=== PATIENT | male | born 1950 | race Caucasian/White ===

== ENCOUNTER 2024-08-18 11:30 | Outpatient (REF) | payer MEDICARE, SELFPAY ==
--- OUTSIDE RECORDS SUMMARY | 2024-08-18 14:07 | XMS_ITS | Clinical Summary ---
Author Organization [address] [place] [address] Address [address] [place] [address] Phone Care Team Providers Care Bird Trapper Name Role Phone Uday Mantilla MD Primary Care Provider [phone] Allergies No known active allergies Medications ascorbic acid (VITAMIN C) 500 mg chewable tablet Take 1 Tablet by mouth daily. Take with iron 11/22/2022 Active ferrous sulfate 325 mg (65 mg elemental iron) tablet Take 1 Tablet by mouth daily. Take with vitamin C 11/22/2022 Active aspirin 81 mg chewable tablet Take 1 Tablet by mouth daily. 09/26/2022 Active atorvastatin (LIPITOR) 80 mg tablet Take 1 Tablet by mouth. 08/15/2022 Active levothyroxine (SYNTHROID, LEVOTHROID) 200 mcg tablet Take 1 Tablet by mouth daily for 360 days. Take 1 tablet on days 1 through 6 and 2 tablets on day 7 11/21/2022 Active metoprolol succinate (TOPROL-XL) 25 mg 24 hr tablet Take 1 Tablet by mouth daily. 01/17/2024 Active zolpidem (AMBIEN) 10 mg tablet at bedtime. 01/06/2023 Active Active Problems Problem Noted Date Diagnosed Date Abdominal pain 04/03/2024 Bladder distension 04/03/2024 Change in bowel habits 04/03/2024 Enlarged prostate 04/03/2024 Chest pain 11/21/2022 Dizziness 11/21/2022 Overview (04/03/2024): Last Assessment & Plan: Patient's dose of beta-judy will be decreased to 25 mg a day to see if that helps and report if it has not at that point if he has not then he needs a CAT scan of the head CAD (coronary artery disease) 08/29/2022 Overview (04/03/2024): Last Assessment & Plan: History of the scar coronary disease status post RCA stenting reduced left ventricular ejection fraction of 35 to 40%.. Question of possible thrombus which is resolved. He is off Eliquis remains on aspirin and Plavix and is now just on aspirin therapy ST elevation myocardial infa rction involving left anterior descending (LAD) coronary artery ([facility] V24, [facility] V28) 08/29/2022 Overview (04/03/2024): Last Assessment & Plan: Patient is status post acute coronary syndrome with evidence of an infarct with possible apical aneurysm formation. Initially thought to have a thrombus present but not verified when the second echocardiogram was done using Definity. Patient was left with a significantly low ejection fraction he has had no chest pain pressure shortness of breath no symptoms whatsoever but has not had a repeat echocardiogram done to assess EF which was low. Patient is on appropriate medical therapy. Anticoagulation is been stopped. Patient's been management for hypertension and hyperlipidemia H. pylori infection 07/12/2020 Acquired hypothyroidism 02/26/2017 Mixed hyperlipidemia 11/20/2010 Overview (04/03/2024): 05/20 recommended statin. 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 Encounters Date Type Department Care Team Description 06/10/2024 8:30 AM EST Office Visit Adult [facility] [address] [place] [id number] Imelda Victoria NP Forgetfulness (Primary Dx); ST elevation myocardial infarction involving left anterior descending (LAD) coronary artery ([facility] V24, [facility] V28); Mixed hyperlipidemia; Acquired hypothyroidism from Last 3 Months Immunizations Name Administration Dates Next Due Influenza Quadravalent, MDCK , 0.5ml, preservative free (Flucelvax) 6mo and older 03/07/2018 Influenza trivalent, 0.5mL (Fluad) 65yo and olde r 05/29/2021,01/21/2020 Influenza, Unspecified 02/11/2022 Tdap Tetanus diptheria acell ular pertussis (Boostrix; Adacel) 7yo and older 02/05/2007 Surgical History Surgery Date Site/Laterality Comments OTHER SURGICAL HISTORY PROCEDURE: SD THYROIDECTOMY TOTAL/SUBTOTAL RAD NECK DISSECT VASECTOMY PROCEDURE: SD VASECTOMY UNI/BI SPX W/POSTOP SEMEN EXAMS COLONOSCOPY 01/21/2002 PROCEDURE: HISTORICAL COLONOSCOPY; COMMENT: no polyps. COLONOSCOPY 06/04/2018 PROCEDURE: HISTORICAL COLONOSCOPY; COMMENT: no polyps HERNIA REPAIR 01/2020 Left PROCEDURE: HISTORICAL HERNIA REPAIR/ING HERNIA REPAIR 01/2020 PROCEDURE: HISTORICAL HERNIA REPAIR/UMB OTHER SURGICAL HISTORY 07/2022 N/A PROCEDURE: SURGICAL STENT; COMMENT: 2 coronary stents placed [facility] Medical History Medical History Date Comments Malignant neoplasm of thyroi d gland ([facility] V24, [facility] V28) DX:Malignant neoplasm of th yroid gland (HCC); COMMENT: treated with thyroidectomy at age 15, and 1992 Postsurgical hypothyroidism DX:P ostsurgical hypothyroidism Hyperlipidemia DX:Hyperlipidemi a Bladder distension DX:Bladder di stension Enlarged prostate DX:Enlarged pr ostate Abdominal pain DX:Abdominal sobia n Change in bowel habits DX:Change in bowel habits CAD (coronary artery disease) DX :CAD (coronary artery disease) History of [place] (myocardial infarction) DX:History of [place] (myocardial infarction) Family History Medical History Relation Name Comments Prostate cancer Brother Prostate cancer Father Other: falls Mother alive age 90 Relation Name Status Comments Brother Alive Father Mother Son Alive Social History Tobacco Use Types Packs/Day Years Used Date Smoking Tobacco: Never Smokeless Tobacco: Never Tobacco Cessation:Counseling Given: No Alcohol Use Standard Drinks/Week Comments Yes 0 (1 standard drink = 0.6 oz pur e alcohol) Sex and Gender Information Value Date Recorded Sex Assigned at Not on file Legal Sex Male 8:02 PM EST Gender Identity Not on file Sexual Orientation Not on file Obstetrics History Last Filed Vital Signs Vital Sign Reading Time Taken Comments Blood Pressure 125/79 06/10/2024 8:29 AM EST Pulse 85 06/10/2024 8:29 AM EST Temperature 36.4 ??C (97.5 ??F) 06/10/2024 8:29 AM ES T Respiratory Rate - - Oxygen Saturation - - Inhaled Oxygen Concentration - - Weight 93.9 kg (207 lb) 06/10/2024 8:29 AM EST Height 188 cm (6' 2 ) 06/10/2024 8:29 AM EST Body Mass Index 26.58 06/10/2024 8:29 AM EST Plan of Treatment Health Maintenance Due Date Last Done Comments Pneumococcal Vaccine: 50+ Years (1 of 2 - PCV) 1969 Zoster Vaccines (1 of 2) 1969 DTaP,Tdap,and Td Vaccines (2 - Td or Tdap) 02/05/2017 02/05/2007 Colorectal Cancer Screening: Stool Based Tests (FOBT/FIT) 04/07/2022 Depression Screening 04/07/2022 Falls Risk Assessment 04/07/2022 Social Influencers of Health Screening 04/07/2022 Medicare Annual Wellness Visit 02/01/2024 01/31/2023 RSV Immunization Adult Patients (1 - 1-dose 75+ series) 2024 COVID-19 Vaccine (5 - Pfizer risk 2023- season) 2024 02/20/2024, 03/16/2021, 07/22/2020, Additional history exists Hypertension/CHF/CAD Annual BMP Blood Test 06/10/2025 06/10/2024, 02/04/2023 Cholesterol Screening (Lipid Panel) 06/10/2029 06/10/2024, 05/29/2021 Hepatitis C Screening Completed 01/09/2016 Colorectal Cancer Screening: Colonoscopy Discontinued 03/20/2022 Influenza Vaccine Completed 03/23/2024, , 02/10/2022, Additional history exists HIB Vaccines Aged Out No longer eligi ble based on patient's age to complete this topic HPV Vaccines Aged Out No longer eligi ble based on patient's age to complete this topic Hepatitis A Vaccines Aged Out No long er eligible based on patient's age to complete this topic Hepatitis B Vaccines Aged Out No long er eligible based on patient's age to complete this topic IPV Vaccines Aged Out No longer eligi ble based on patient's age to complete this topic MMR Vaccines Aged Out No longer eligi ble based on patient's age to complete this topic Meningococcal ACWY Vaccine Aged Out N o longer eligible based on patient's age to complete this topic Meningococcal B Vaccine Aged Out No l onger eligible based on patient's age to complete this topic RSV Immunization Patients Under 20 months Aged Out No longer eligible based on patient's age to complete this topic Varicella Vaccines Aged Out No longer eligible based on patient's age to complete this topic Procedures Procedure Name Priority Date/Time Associated Diagnosis Comments TRIIODOTHYRONINE FREE Routine 06/10/2024 9:31 AM EST Acquired hypothyroidism FREE THYROXINE WITH REFLEX TO FREE TRIIODOTHYRONINE Routine 06/10/2024 9:31 AM EST Acquired hypothyroidism CBC WITH AUTO DIFFERENTIAL Routine 06/10/2024 9:[address] elevation myocardial infarction involving left anterior descending (LAD) coronary artery (CMS/HCC V24, CMS/HCC V28) THYROID STIMULATING HORMONE WITH REFLEX TO FREE T4 AND FREE T3 Routine 06/10/2024 9:31 AM EST Acquired hypothyroidism LIPID PANEL WITH REFLEX TO DIRECT LDL Routine 06/10/2024 9:[address] elevation myocardial infarction involving left anterior descending (LAD) coronary artery (CMS/HCC V24, CMS/HCC V28) Mixed hyperlipidemia COMPREHENSIVE METABOLIC PANEL Routine 06/10/2024 9:[address] elevation myocardial infarction involving left anterior descending (LAD) coronary artery (CMS/HCC V24, CMS/HCC V28) CBC AND DIFFERENTIAL Routine 06/10/2024 9:[address] elevation myocardial infarction involving left anterior descending (LAD) coronary artery (CMS/HCC V24, CMS/HCC V28) VITAMIN B12 AND FOLATE Routine 9:31 AM EST Forgetfulness COLONOSCOPY Routine 03/20/2022 HEPATITIS C SCREENING Routine 01/09/2016 from Last 3 Months or Most Recently Relevant to Health Maintenance Results * (ABNORMAL) Thyroid stimulating hormone with reflex to free t4 and free t3 (06/10/2024 9:31 AM EST) TSH 90.81(H) 0.40 - 4.00 mcIU/mL LAB CHEMISTRY METHOD 06/10/2024 1:25 PM EST [facility] Comment:Results verified by repeat testing Blood Venous blood specimen / Unknown Venipuncture / Unknown 06/10/2024 9:31 AM EST 06/10/2024 9:31 AM EST Imelda Victoria NET DEVELOPER [employer]CHIT[employer] LAB BLOOD ORDERABLES Final Res ult Performing Organization Address City/[facility]/ZIP Co de Phone Number [facility] [address] [place] [address], [place] [phone] * (ABNORMAL) Free thyroxine with reflex to free triiodothyronine (06/10/2024 9:31 AM EST) Free T4 0.43(L) 0.70 - 1.80 ng/dL LAB CHEMISTRY METHOD 06/10/2024 1:50 PM EST [facility] Blood Venous blood specimen / Unknown Venipuncture / Unknown 06/10/2024 9:31 AM EST 06/10/2024 9:31 AM EST Iemlda Victoria [employer] DEVELOPER ARCHIT[employer] LAB BLOOD ORDERABLES Final Res ult [facility] [address] [place] [address], [place] [phone] * Vitamin B12 and folate (06/10/2024 9:31 AM EST) [facility] Vitamin B-12 306 250 - 900 pcg/mL LAB CHEMISTRY METHOD 06/10/2024 12:59 PM [facility] Folate 11.6 2.8 - 17.0 ng/ml LAB CHEMISTRY METHOD 06/10/2024 12:59 PM [facility] Blood Venous blood specimen / Unknown Venipuncture / Unknown 06/10/2024 9:31 AM EST 06/10/2024 9:31 AM EST us Imelda Victoria NP LAB BLOOD ORDERABLES Final Res ult [facility] [address] [place] [address], [place] [phone] * (ABNORMAL) Lipid panel with reflex to direct LDL (06/10/2024 9:31 AM EST) [facility] Cholesterol 255(H) 0 - 200 mg/dL LAB CHEMISTRY METHOD 06/10/2024 12:59 PM [facility] Triglycerides 167(H) 0 - 150 mg/dL LAB CHEMISTRY METHOD 06/10/2024 12:59 PM [facility] HDL 51 >=40 mg/dL LAB CHEMISTRY METHOD 06/10/2024 12:59 PM [facility] LDL Calculated 171(H) 0 - 100 mg/dL LAB CHEMISTRY METHOD 06/10/2024 12:59 PM [facility] VLDL Cholesterol Braulio 33.4 mg/dL LAB CHEMISTRY METHOD 06/10/2024 12:59 PM [facility] Non HDL Chol. (LDL+VLDL) 204(H) <145 mg/dL LAB CHEMISTRY METHOD 06/10/2024 12:59 PM [facility] Chol/HDL Ratio 5.0(H) 0.0 - 4.4 LAB CHEMISTRY METHOD 06/10/2024 12:59 PM [facility] Blood Venous blood specimen / Unknown Venipuncture / Unknown 06/10/2024 9:31 AM EST 06/10/2024 9:31 AM EST us Imelda Victoria NP LAB BLOOD ORDERABLES Final Res ult [facility] [address] [place] [address], * (ABNORMAL) CBC auto differential (06/10/2024 9:31 AM EST) WBC 5.6 4.8 - 10.8 K/mcL LAB HEMETOLOGY METHOD 06/10/2024 12:12 PM [facility] RBC 4.90 4.50 - 5.50 M/mcL LAB HEMETOLOGY METHOD 06/10/2024 12:12 PM [facility] Hemoglobin 14.3 13.5 - 17.5 g/dL LAB HEMETOLOGY METHOD 06/10/2024 12:12 PM [facility] Hematocrit 43.8 42.0 - 54.0 % LAB HEMETOLOGY METHOD 06/10/2024 12:12 PM [facility] MCV 90.1 79.0 - 98.0 FL LAB HEMETOLOGY METHOD 06/10/2024 12:12 PM [facility] MCH 29.4 27.0 - 32.0 pcg LAB HEMETOLOGY METHOD 06/10/2024 12:12 PM [facility] MCHC 32.6 32.0 - 37.0 g/dL LAB HEMETOLOGY METHOD 06/10/2024 12:12 PM [facility] RDW 13.3 11.0 - 15.0 % LAB HEMETOLOGY METHOD 06/10/2024 12:12 PM [facility] Platelets 286 130 - 400 K/mcL LAB HEMETOLOGY METHOD 06/10/2024 12:12 PM [facility] MPV 9.2 7.0 - 11.0 FL LAB HEMETOLOGY METHOD 06/10/2024 12:12 PM [facility] NRBC 0.0 <1.0 % LAB HEMETOLOGY METHOD 06/10/2024 12:12 PM [facility] NRBC Absolute 0.00 <0.10 K/mcL LAB HEMETOLOGY METHOD 06/10/2024 12:12 PM [facility] Neutrophils Relative 61.5 % LAB HEMETOLOGY METHOD 06/10/2024 12:12 PM [facility] Lymphocytes Relative 23.6 % LAB HEMETOLOGY METHOD 06/10/2024 12:12 PM [facility] Monocytes Relative 9.8 % LAB HEMETOLOGY METHOD 06/10/2024 12:12 PM [facility] Eosinophils Relative 3.7 % LAB HEMETOLOGY METHOD 06/10/2024 12:12 PM [facility] Basophils Relative 0.7 % LAB HEMETOLOGY METHOD 06/10/2024 12:12 PM [facility] Immature Granulocytes Relative 0.7 % LAB HEMETOLOGY METHOD 06/10/2024 12:12 PM [facility] Neutrophils Absolute 3.46 1.50 - 7.00 K/mcL LAB HEMETOLOGY METHOD 06/10/2024 12:12 PM [facility] Lymphocytes Absolute 1.33 1.00 - 5.00 K/mcL LAB HEMETOLOGY METHOD 06/10/2024 12:12 PM [facility] Monocytes Absolute 0.55 0.20 - 1.00 K/mcL LAB HEMETOLOGY METHOD 06/10/2024 12:12 PM [facility] Eosinophils Absolute 0.21 0.00 - 0.50 K/mcL LAB HEMETOLOGY METHOD 06/10/2024 12:12 PM EST [facility] Basophils Absolute 0.04 0.00 - 0.20 K/mcL LAB HEMETOLOGY METHOD 06/10/2024 12:12 PM EST [facility] Immature Granulocytes Absolute 0.04(H) 0.00 - 0.03 K/mcL LAB HEMETOLOGY METHOD 06/10/2024 12:12 PM [facility] Blood Venous blood specimen / Unknown Venipuncture / Unknown 06/10/2024 9:31 AM EST 06/10/2024 9:31 AM EST Imelda Victoria NP LAB BLOOD ORDERABLES Final Res ult Performing Organization Address City/[facility]/ZIP Co de Phone Number [facility] [address] [place] [address], [place] [phone] * (ABNORMAL) Triiodothyronine free (06/10/2024 9:31 AM EST) T3, Free 212(L) 230 - 420 pcg/dL LAB CHEMISTRY METHOD 06/10/2024 2:15 PM [facility] Blood Venous blood specimen / Unknown Venipuncture / Unknown 06/10/2024 9:31 AM EST 06/10/2024 9:31 AM EST Imelda Victoria NP LAB BLOOD ORDERABLES Final Res ult [facility] [address] [place] [address], [place] [phone] * Comprehensive metabolic panel (06/10/2024 9:31 AM EST) Sodium 134 133 - 145 mmol/L LAB CHEMISTRY METHOD 06/10/2024 12:59 PM [facility] Potassium 3.8 3.5 - 5.5 mmol/L LAB CHEMISTRY METHOD 06/10/2024 12:59 PM EST [facility] Chloride 100 96 - 110 mmol/L LAB CHEMISTRY METHOD 06/10/2024 12:59 PM [facility] CO2 30 21 - 32 mmol/L LAB CHEMISTRY METHOD 06/10/2024 12:59 PM [facility] Anion Gap 4 3 - 11 LAB CHEMISTRY METHOD 06/10/2024 12:59 PM [facility] Glucose 76 70 - 100 mg/dL LAB CHEMISTRY METHOD 06/10/2024 12:59 PM [facility] BUN 10 5 - 25 mg/dL LAB CHEMISTRY METHOD 06/10/2024 12:59 PM [facility] Creatinine 1.18 0.70 - 1.30 mg/dL LAB CHEMISTRY METHOD 06/10/2024 12:59 PM [facility] eGFR 64 >=60 mL/min/1. 73m2 LAB CHEMISTRY METHOD 06/10/2024 12:59 PM [facility] Comment:Calculation based on the??Chronic Kidney Disease Epidemiology Collaboration (CKD-EPI) equation refit??without adjustment for race. BUN/Creatinine Ratio 8.5 LAB CHEMISTRY METHOD 06/10/2024 12:59 PM [facility] Calcium 9.4 8.5 - 10.5 mg/dL LAB CHEMISTRY METHOD 06/10/2024 12:59 PM [facility] AST (SGOT) 35 10 - 42 unit/L LAB CHEMISTRY METHOD 06/10/2024 12:59 PM [facility] ALT (SGPT) 39 10 - 60 unit/L LAB CHEMISTRY METHOD 06/10/2024 12:59 PM [facility] Alkaline Phosphatase 72 42 - 121 unit/L LAB CHEMISTRY METHOD 06/10/2024 12:59 PM [facility] Total Protein 7.4 6.0 - 8.0 g/dL LAB CHEMISTRY METHOD 06/10/2024 12:59 PM [facility] Albumin 4.2 3.2 - 5.0 g/dL LAB CHEMISTRY METHOD 06/10/2024 12:59 PM EST [facility] Total Bilirubin 0.5 0.0 - 1.4 mg/dL LAB CHEMISTRY METHOD 06/10/2024 12:59 PM EST [facility] Blood Venous blood specimen / Unknown Venipuncture / Unknown 06/10/2024 9:31 AM EST 06/10/2024 9:31 AM EST Imelda Victoria NET DEVELOPER ARCH[employer] LAB BLOOD ORDERABLES Final Res ult [facility] [address] [place] [address], * Colonoscopy (03/20/2022) Colonoscopy No Interpretation , Abstracted Anatomical Region Laterality Modality Other Historical Provider HEALTH MAINTENANCE Final Result * Hepatitis C Screening (01/09/2016) Hepatitis C Screening Abstracted Historical Provider HEALTH MAINTENANCE Final Result from Last 3 Months or Most Recently Relevant to Health [place] [id number] Care Teams Bird Trapper Relationship Specialty Start Date End Date Uday Mantilla MD [address] [place] [id number] PCP - General Internal Medicine 12/30/19
[2024-08-21 21:14] LABS: Thyrotropin Receptor Antibody <1.00 IU/L (<=2.00)
== END 2024-08-18 11:31 | disposition home or self-care (01) ==
LOC: HO.LAB 11:30
PROVIDERS: Visit Provider Psychiatry & Neurology Neurology
DX: G30.9 Alzheimer's disease, unspecified (principal)
CPT/HCPCS: 36415; 83520

== ENCOUNTER 2024-08-23 09:08 | Outpatient (REF) | payer MEDICARE, SELFPAY | END 2024-08-23 09:09 | disposition home or self-care (01) | LOC: HO.MRI 09:08 | PROVIDERS: Visit Provider Psychiatry & Neurology Neurology | DX: G30.9 Alzheimer's disease, unspecified (principal) | CPT/HCPCS: 70551 ==

== ENCOUNTER → 2024-08-23 09:20 | Outpatient (BNV) | payer MEDICARE, SELFPAY | PROVIDERS: Visit Provider Radiology Diagnostic Radiology | DX: G93.89 Other specified disorders of brain (principal); R90.82 White matter disease, unspecified | CPT/HCPCS: 70551 ==

== ENCOUNTER 2024-09-01 12:07 | Outpatient (REF) | payer MEDICARE, SELFPAY ==
--- OUTSIDE RECORDS SUMMARY | 2024-09-01 13:36 | XMS_ITS | Clinical Summary ---
Author Organization [address] [place] [address] Address [address] [place] [address] Phone Care Team Providers Care Early Intervention Specialist Name Role Phone Uday Mantilla MD Primary Care Provider [phone] Allergies No known active allergies Medications ascorbic [...] involving left anterior descending (LAD) coronary artery ([facility] V24, [facility] V28) 08/29/2022 Overview (04/03/2024): Last Assessment & [...] consider Malignant neoplasm of thyroi d gland ([facility] V24, [facility] V28) 11/20/2005 Overview (04/03/2024): Right lobe removed at age 15, 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 Encounters Date Type Department Care Team Description 06/10/2024 8:30 AM EST Office Visit Adult [facility] [address] [place] [phone] Imelda Victoria NP Forgetfulness (Primary Dx); ST elevation myocardial infarction involving left anterior descending (LAD) coronary artery ([facility] V24, [facility] V28); Mixed hyperlipidemia; Acquired hypothyroidism from Last 3 Months Immunizations Name Administration Dates Next Due Influenza Quadravalent, MDCK , 0.5ml, preservative free (Flucelvax) 6mo and older 03/07/2018 Influenza trivalent, 0.5mL (Fluad) 65yo and olde r 05/29/2021,01/21/2020 Influenza, Unspecified 02/11/2022 Tdap Tetanus diptheria acell ular pertussis (Boostrix; Adacel) 7yo and older 02/05/2007 Surgical History Surgery Date Site/Laterality Comments OTHER SURGICAL HISTORY PROCEDURE: [place] THYROIDECTOM[place] TOTAL/SUBTOTAL RAD NECK DISSECT VASECTOMY PROCEDURE: [place] VASECTOMY UNI/BI SPX W/POSTOP SEMEN EXAMS COLONOSCOPY 01/21/2002 PROCEDURE: HISTORICAL COLONOSCOPY; COMMENT: no polyps. COLONOSCOPY 06/04/2018 PROCEDURE: HISTORICAL COLONOSCOPY; COMMENT: no polyps HERNIA REPAIR 01/2020 Left PROCEDURE: HISTORICAL HERNIA REPAIR/ING HERNIA REPAIR 01/2020 PROCEDURE: HISTORICAL HERNIA REPAIR/UMB OTHER SURGICAL HISTORY 07/2022 N/A PROCEDURE: SURGICAL STENT; COMMENT: 2 coronary stents placed [facility] Medical History Medical History Date Comments Malignant neoplasm of thyroi d gland ([facility] V24, [facility] V28) DX:Malignant neoplasm of th yroid gland (HCC); COMMENT: treated with thyroidectomy at age 15, and 1992 Postsurgical hypothyroidism DX:P ostsurgical hypothyroidism Hyperlipidemia DX:Hyperlipidemi a Bladder distension DX:Bladder di stension Enlarged prostate DX:Enlarged pr ostate Abdominal pain DX:Abdominal sobia n Change in bowel habits DX:Change in bowel habits CAD (coronary artery disease) DX :CAD (coronary artery disease) History of [place] (myocardial infarction) DX:History of [place] (myocardial infarction) Family History Medical History Relation [...] EST 06/10/2024 9:31 AM EST Imelda Victoria [employer] LAB BLOOD ORDERABLES Final Res ult Performing Organization Address City/[facility]/ZIP Co de Phone Number [facility] [address] [place] [address], [place] [phone] * (ABNORMAL) Free thyroxine with reflex to free triiodothyronine (06/10/2024 9:31 AM EST) Free T4 0.43(L) 0.70 - 1.80 ng/dL LAB CHEMISTRY METHOD 06/10/2024 1:50 PM EST [facility] Blood Venous blood specimen / Unknown Venipuncture / Unknown 06/10/2024 9:31 AM EST 06/10/2024 9:31 AM EST Imelda Victoria [employer] LAB BLOOD ORDERABLES Final Res ult [facility] [address] [place] [address], [place] [phone] * Vitamin B12 and folate (06/10/2024 9:31 AM EST) [facility] Vitamin B-12 306 250 - 900 pcg/mL LAB CHEMISTRY METHOD 06/10/2024 12:59 PM [facility] Folate 11.6 2.8 - 17.0 ng/ml LAB CHEMISTRY METHOD 06/10/2024 12:59 PM [facility] Blood Venous blood specimen / Unknown Venipuncture / Unknown 06/10/2024 9:31 AM EST 06/10/2024 9:31 AM EST us Imelda Victoria NP LAB BLOOD ORDERABLES Final Res ult [facility] [address] [place] [address], [place] [phone] * (ABNORMAL) Lipid panel with reflex to direct LDL (06/10/2024 9:31 AM EST) [facility] Cholesterol 255(H) 0 - 200 mg/dL LAB CHEMISTRY METHOD 06/10/2024 12:59 PM [facility] Triglycerides 167(H) 0 - 150 mg/dL LAB CHEMISTRY METHOD 06/10/2024 12:59 PM [facility] HDL 51 >=40 mg/dL LAB CHEMISTRY METHOD 06/10/2024 12:59 PM [facility] LDL Calculated 171(H) 0 - 100 mg/dL LAB CHEMISTRY METHOD 06/10/2024 12:59 PM [facility] VLDL Cholesterol Braulio 33.4 mg/dL LAB CHEMISTRY METHOD 06/10/2024 12:59 PM [facility] Non HDL Chol. (LDL+VLDL) 204(H) <145 mg/dL LAB CHEMISTRY METHOD 06/10/2024 12:59 PM [facility] Chol/HDL Ratio 5.0(H) 0.0 - 4.4 LAB CHEMISTRY METHOD 06/10/2024 12:59 PM [facility] Blood Venous blood specimen / Unknown Venipuncture / Unknown 06/10/2024 9:31 AM EST 06/10/2024 9:31 AM EST us Imelda Victoria NP LAB BLOOD ORDERABLES Final Res ult [facility] [address] [place] [address], * (ABNORMAL) CBC auto differential (06/10/2024 9:31 AM EST) WBC 5.6 4.8 - 10.8 K/mcL LAB HEMETOLOGY METHOD 06/10/2024 12:12 PM [facility] RBC 4.90 4.50 - 5.50 M/mcL LAB HEMETOLOGY METHOD 06/10/2024 12:12 PM [facility] Hemoglobin 14.3 13.5 - 17.5 g/dL LAB HEMETOLOGY METHOD 06/10/2024 12:12 PM [facility] Hematocrit 43.8 42.0 - 54.0 % LAB HEMETOLOGY METHOD 06/10/2024 12:12 PM [facility] MCV 90.1 79.0 - 98.0 FL LAB HEMETOLOGY METHOD 06/10/2024 12:12 PM [facility] MCH 29.4 27.0 - 32.0 pcg LAB HEMETOLOGY METHOD 06/10/2024 12:12 PM [facility] MCHC 32.6 32.0 - 37.0 g/dL LAB HEMETOLOGY METHOD 06/10/2024 12:12 PM [facility] RDW 13.3 11.0 - 15.0 % LAB HEMETOLOGY METHOD 06/10/2024 12:12 PM [facility] Platelets 286 130 - 400 K/mcL LAB HEMETOLOGY METHOD 06/10/2024 12:12 PM [facility] MPV 9.2 7.0 - 11.0 FL LAB HEMETOLOGY METHOD 06/10/2024 12:12 PM [facility] NRBC 0.0 <1.0 % LAB HEMETOLOGY METHOD 06/10/2024 12:12 PM [facility] NRBC Absolute 0.00 <0.10 K/mcL LAB HEMETOLOGY METHOD 06/10/2024 12:12 PM [facility] Neutrophils Relative 61.5 % LAB HEMETOLOGY METHOD 06/10/2024 12:12 PM [facility] Lymphocytes Relative 23.6 % LAB HEMETOLOGY METHOD 06/10/2024 12:12 PM [facility] Monocytes Relative 9.8 % LAB HEMETOLOGY METHOD 06/10/2024 12:12 PM [facility] Eosinophils Relative 3.7 % LAB HEMETOLOGY METHOD 06/10/2024 12:12 PM [facility] Basophils Relative 0.7 % LAB HEMETOLOGY METHOD 06/10/2024 12:12 PM [facility] Immature Granulocytes Relative 0.7 % LAB HEMETOLOGY METHOD 06/10/2024 12:12 PM [facility] Neutrophils Absolute 3.46 1.50 - 7.00 K/mcL LAB HEMETOLOGY METHOD 06/10/2024 12:12 PM [facility] Lymphocytes Absolute 1.33 1.00 - 5.00 K/mcL LAB HEMETOLOGY METHOD 06/10/2024 12:12 PM [facility] Monocytes Absolute 0.55 0.20 - 1.00 K/mcL LAB HEMETOLOGY METHOD 06/10/2024 12:12 PM [facility] Eosinophils Absolute 0.21 0.00 - 0.50 K/mcL LAB HEMETOLOGY METHOD 06/10/2024 12:12 PM EST [facility] Basophils Absolute 0.04 0.00 - 0.20 K/mcL LAB HEMETOLOGY METHOD 06/10/2024 12:12 PM EST [facility] Immature Granulocytes Absolute 0.04(H) 0.00 - 0.03 K/mcL LAB HEMETOLOGY METHOD 06/10/2024 12:12 PM [facility] Blood Venous blood specimen / Unknown Venipuncture / Unknown 06/10/2024 9:31 AM EST 06/10/2024 9:31 AM EST Imelda Victoria NP LAB BLOOD ORDERABLES Final Res ult Performing Organization Address City/[facility]/ZIP Co de Phone Number [facility] [address] [place] [address], [place] [phone] * (ABNORMAL) Triiodothyronine free (06/10/2024 9:31 AM EST) T3, Free 212(L) 230 - 420 pcg/dL LAB CHEMISTRY METHOD 06/10/2024 2:15 PM [facility] Blood Venous blood specimen / Unknown Venipuncture / Unknown 06/10/2024 9:31 AM EST 06/10/2024 9:31 AM EST Imelda Victoria NP LAB BLOOD ORDERABLES Final Res ult [facility] [address] [place] [address], [place] [phone] * Comprehensive metabolic panel (06/10/2024 9:31 AM EST) Sodium 134 133 - 145 mmol/L LAB CHEMISTRY METHOD 06/10/2024 12:59 PM [facility] Potassium 3.8 3.5 - 5.5 mmol/L LAB CHEMISTRY METHOD 06/10/2024 12:59 PM EST [facility] Chloride 100 96 - 110 mmol/L LAB CHEMISTRY METHOD 06/10/2024 12:59 PM [facility] CO2 30 21 - 32 mmol/L LAB CHEMISTRY METHOD 06/10/2024 12:59 PM [facility] Anion Gap 4 3 - 11 LAB CHEMISTRY METHOD 06/10/2024 12:59 PM [facility] Glucose 76 70 - 100 mg/dL LAB CHEMISTRY METHOD 06/10/2024 12:59 PM [facility] BUN 10 5 - 25 mg/dL LAB CHEMISTRY METHOD 06/10/2024 12:59 PM [facility] Creatinine 1.18 0.70 - 1.30 mg/dL LAB CHEMISTRY METHOD 06/10/2024 12:59 PM [facility] eGFR 64 >=60 mL/min/1. 73m2 LAB CHEMISTRY METHOD 06/10/2024 12:59 PM [facility] Comment:Calculation based on the??Chronic Kidney Disease Epidemiology Collaboration (CKD-EPI) equation refit??without adjustment for race. BUN/Creatinine Ratio 8.5 LAB CHEMISTRY METHOD 06/10/2024 12:59 PM [facility] Calcium 9.4 8.5 - 10.5 mg/dL LAB CHEMISTRY METHOD 06/10/2024 12:59 PM [facility] AST (SGOT) 35 10 - 42 unit/L LAB CHEMISTRY METHOD 06/10/2024 12:59 PM [facility] ALT (SGPT) 39 10 - 60 unit/L LAB CHEMISTRY METHOD 06/10/2024 12:59 PM [facility] Alkaline Phosphatase 72 42 - 121 unit/L LAB CHEMISTRY METHOD 06/10/2024 12:59 PM [facility] Total Protein 7.4 6.0 - 8.0 g/dL LAB CHEMISTRY METHOD 06/10/2024 12:59 PM [facility] Albumin 4.2 3.2 - 5.0 g/dL LAB CHEMISTRY METHOD 06/10/2024 12:59 PM EST [facility] Total Bilirubin 0.5 0.0 - 1.4 mg/dL LAB CHEMISTRY METHOD 06/10/2024 12:59 PM EST [facility] Blood Venous blood specimen / Unknown Venipuncture / Unknown 06/10/2024 9:31 AM EST 06/10/2024 9:31 AM EST Imelda Victoria [employer] LAB BLOOD ORDERABLES Final Res ult [facility] [address] [place] [address], * Colonoscopy (03/20/2022) Colonoscopy No Interpretation , Abstracted Anatomical Region Laterality Modality Other Historical Provider HEALTH MAINTENANCE Final Result * Hepatitis C Screening (01/09/2016) Hepatitis C Screening Abstracted Historical Provider HEALTH MAINTENANCE Final Result from Last 3 Months or Most Recently Relevant to Health [place] [id number] Care Teams Early Intervention Specialist Relationship Specialty Start Date End Date Uday Mantilla MD [address] [place] [id number] PCP - General Internal Medicine 12/30/19
[2024-09-01 15:07] LABS: Thyroid Stimulating Hormone 56.56 uIU/mL (0.32-4.0)
[2024-09-01 15:16] LABS: Vitamin B12 286 pg/mL (200-900)
== END 2024-09-01 12:08 | disposition home or self-care (01) ==
LOC: HO.LAB 12:07
PROVIDERS: PCP Psychiatry & Neurology Neurology; Visit Provider Psychiatry & Neurology Neurology
DX: G30.9 Alzheimer's disease, unspecified (principal)
CPT/HCPCS: 36415; 82607; 84443